=== PATIENT | female | born 2000 | race Hispanic/Latino ===

== ENCOUNTER 2023-01-04 15:17 | Outpatient (CLI) | payer OTHER | END 2023-01-04 15:18 | disposition home or self-care (01) | LOC: TBSIIMAG 15:17 | PROVIDERS: ATTEND Neurological Surgery | DX: M48.56XA Collapsed vertebra, not elsewhere classified, lumbar region, initial encounter for fracture (principal); M43.9 Deforming dorsopathy, unspecified | CPT/HCPCS: 72072 ==